=== PATIENT | female | born 1980 | race Caucasian/White ===

== ENCOUNTER 2024-08-14 06:16 | Day surgery (SDC) | payer BC ==
[2024-08-11 12:06] VITALS: BMI 37.8
[2024-08-14] MEDS ORDERED: BUPIVACAINE HCL/EPINEPHRINE/PF 30 ML VIAL IJ ONE ×2 (07:12→08:45)
[2024-08-14] MEDS ORDERED: PROPOFOL 20 ML ONE (07:46)
[2024-08-14] MEDS ORDERED: ROCURONIUM BROMIDE 50 MG/5 ML SYRINGE ONE ×2 (07:46→09:13)
[2024-08-14] MEDS ORDERED: MIDAZOLAM HCL 2 MG/2 ML SINGLE DOSE VIAL ONE (07:46)
[2024-08-14] MEDS ORDERED: SUCCINYLCHOLINE CHLORIDE 200 MG/10 ML SYRINGE ONE (07:47)
[2024-08-14] MEDS ORDERED: KETOROLAC TROMETHAMINE 30 MG/1 ML VIAL ONE (08:21)
[2024-08-14] MEDS ORDERED: ONDANSETRON 4 MG/2 ML VIAL ONE (08:21)
[2024-08-14] MEDS ORDERED: DEXAMETHASONE SOD PHOSPHATE 4 MG/1 ML VIAL ONE (08:21)
[2024-08-14] MEDS: BUPIVACAINE 0.25% /EPI 1:200,000 10 ML VIAL NR ONE (08:41)
[2024-08-14] MEDS ORDERED: WATER FOR INJ,STERILE 20 ML ONE (08:46)
[2024-08-14] MEDS ORDERED: SUGAMMADEX SODIUM 200 MG/2 ML VIAL ONE (10:39)
[2024-08-14] MEDS ORDERED: ONDANSETRON 4 MG/2 ML VIAL IVPUSH PRN (11:16)
[2024-08-14] MEDS ORDERED: FENTANYL CITRATE/PF 50 MCG/ML VIAL ONE (11:18)
[2024-08-14] MEDS ORDERED: LACTATED RINGERS SOLUTION 1,000 ML IV SCH (11:30)
[2024-08-14] MEDS: ACETAMINOPHEN 1000 MG/100 ML BAG IVPB ONE (11:30)
[2024-08-14] MEDS ORDERED: PROMETHAZINE HCL 25 MG/1 ML VIAL IVPB PRN (11:35)
[2024-08-14] MEDS: ONDANSETRON 4 MG/2 ML VIAL IVPUSH PRN (11:40)
[2024-08-14] MEDS: oxyCODONE HCL 5 MG TABLET PO PRN (13:03)
[2024-08-14] MEDS ORDERED: oxyCODONE HCL 5 MG TABLET ONE (13:04)
[2024-08-14 14:32] VITALS: BP 117/74; PULSE 90; RESP 19; TEMP 97.9
== END 2024-08-14 14:25 | disposition home or self-care (01) ==
LOC: FASU 06:16
PROVIDERS: ATTEND Plastic Surgery
PROC: BH42ZZZ Ultrasonography of Bilateral Breasts (ICD-10-PCS; 2024-08-14)
PROC: 0HBV0ZZ Excision of Bilateral Breast, Open Approach (ICD-10-PCS; principal; 2024-08-14 08:41)
DX: N62 Hypertrophy of breast (principal)
CPT/HCPCS: 81025; 88305-TC; 94760; J0131